=== PATIENT | male | born 1990 | race Caucasian/White ===

== ENCOUNTER 2024-05-31 09:13 | Observation (INO) | payer OTHER ==
[2024-05-31 10:09] LABS: Bacteria/HPF None Seen HPF (None Seen); Bilirubin Negative (Negative); Blood, Urine Negative (Negative); CAUTI Indications for Culture Pelvic or flank pain; Clarity Clear (Clear); Glucose, Urine (Dipstick) Normal (Negative); Ketone, Urine Negative (Negative); Leukocyte Negative Leu/uL (Negative); Nitrite Negative (Negative); Protein, Urine (Dipstick) Negative (Neg-Trace); RBC/HPF 0-3 HPF (0-3); Squamous Epithelial None Seen HPF (0-3); Urobilinogen Normal mg/dL (Less than 2); WBC/HPF None Seen HPF (0-3)
[2024-05-31 10:12] LABS: Urine Culture Reflex No No
[2024-05-31 10:45] LABS: #Basophils 0.05 10x3/uL (0.0-0.2); %Basophils 0.4 % (0.0-1.0); %Eosinophils 0.6 % (0.0-10.0); %Monocytes 6.7 % (0.0-10.0); %Neutrophils 72.9 % (42.0-75.0); Hematocrit 41.4 % (42.0-52.0); Hemoglobin 14.3 g/dL (14.0-18.0); Mean Corpuscular HGB CONC 34.5 g/dL (32.0-36.0); Mean Corpuscular Volume 81.2 fL (78.0-98.0); Mean Platelet Volume 9.7 fL (7.4-10.4); Platelet Count 282 10x3/uL (130-400)
[2024-05-31 11:03] LABS: ALT (SGPT) 24 U/L (8-55); AST (SGOT) 21 U/L (5-34); Albumin 4.3 g/dL (3.5-5.0); Anion Gap 14 mmol/L (10-20); BUN (Urea Nitrogen) 12 mg/dL (8.9-20.6); Bilirubin, Total 0.8 mg/dL (0.2-1.2); Calc. Creatinine Clearance 0 mL/min (70-130); Calcium 9.4 mg/dL (7.8-10.44); Carbon Dioxide 24 mmol/L (22-29); Chloride 105 mmol/L (98-107); Estimated GFR 94; Glucose 91 mg/dL (70-105); Potassium 4.2 mmol/L (3.5-5.1); Protein, Total 7.3 g/dL (6.0-8.3); Sodium 139 mmol/L (136-145)
[2024-05-31 11:21] LABS: Alkaline Phosphatase 86 U/L (40-110)
[2024-05-31] MEDS ORDERED: Ketorolac Tromethamine 30 MG (1 mL) VIAL ONE (11:27)
[2024-05-31] MEDS ORDERED: Ondansetron PF 4 MG/2 ML Vial ONE ×2 (11:27→18:13)
[2024-05-31] MEDS ORDERED: Calcium Carbonate 500 MG ChewTAB PO PRN (12:16)
[2024-05-31] MEDS ORDERED: Acetaminophen 325 MG TAB PO PRN (12:16)
[2024-05-31] MEDS ORDERED: Senokot S 8.6-50 MG TAB PO PRN (12:16)
[2024-05-31 13:14] VITALS: BMI 38.1
[2024-05-31] MEDS: Morphine 2 MG/ML VIAL SLOW IVP PRN (13:54)
[2024-05-31] MEDS: Lactated Ringer's 1,000 ML IV SCH (13:54)
[2024-05-31] MEDS ORDERED: PROPOFOL 20 ML ONE (15:47)
[2024-05-31] MEDS ORDERED: fentaNYL PF 100 MCG/2 ML SYRINGE ONE (15:47)
[2024-05-31] MEDS ORDERED: Lidocaine 1% PF 5 ML VIAL ONE (15:48)
[2024-05-31] MEDS ORDERED: LevoFLOXacin D5W 500 mg (100 mL) BAG ONE (18:02)
[2024-05-31] MEDS ORDERED: Dexamethasone 4 mg/ml Vial ONE (18:13)
[2024-05-31] MEDS ORDERED: Midazolam HCl 2 mg/2 ml Vial ONE (18:13)
[2024-05-31] MEDS ORDERED: SUGAMMADEX SODIUM 200 MG/2 ML VIAL ONE (18:34)
[2024-05-31] MEDS ORDERED: PHENYLEPHRINE-NS 100 MCG/ML 10 ML SYRINGE ONE (18:39)
[2024-05-31] MEDS ORDERED: ePHEDrine Sulfate 50 MG/10 ML VIAL ONE (18:44)
[2024-05-31] MEDS ORDERED: Ondansetron HCl/PF 4 MG/2 ML Vial IVP PRN (18:45)
[2024-05-31] MEDS ORDERED: HYDROmorphone 2 MG/ML VIAL SLOW IVP PRN (18:45)
[2024-05-31] MEDS ORDERED: Promethazine HCl 25 MG/ML VIAL IM PRN (18:45)
[2024-05-31] MEDS ORDERED: Iopamidol 15 ML ONE (19:31)
[2024-05-31] MEDS ORDERED: fentaNYL 50 mcg/mL 1 mL Vial ONE ×2 (19:51→20:02)
[2024-05-31] MEDS: Tamsulosin HCl 0.4 MG CAP PO SCH (20:48)
[2024-05-31] MEDS: Ondansetron PF 4 MG/2 ML Vial IVP PRN (23:27)
[2024-05-31] MEDS: Ketorolac Tromethamine 30 MG (1 mL) VIAL IVP PRN (23:27)
[2024-06-01 05:33] LABS: #Basophils Less than 0.03 10x3/uL (0.0-0.2); #Eosinophils Less than 0.03 10x3/uL (0.0-0.7); %Basophils 0.1 % (0.0-1.0); %Lymphocytes 10.4 % (21.0-51.0); %Neutrophils 82.2 % (42.0-75.0); Hematocrit 37.8 % (42.0-52.0); Hemoglobin 12.9 g/dL (14.0-18.0); Mean Corpuscular HGB CONC 34.1 g/dL (32.0-36.0); Mean Corpuscular Volume 82.2 fL (78.0-98.0); Mean Platelet Volume 9.9 fL (7.4-10.4); Platelet Count 261 10x3/uL (130-400); RBC Distribution Width 12.3 % (11.5-14.5)
[2024-06-01 06:15] LABS: Anion Gap 14 mmol/L (10-20); BUN (Urea Nitrogen) 12 mg/dL (8.9-20.6); Calc. Creatinine Clearance 145 mL/min (70-130); Calcium 8.8 mg/dL (7.8-10.44); Carbon Dioxide 21 mmol/L (22-29); Chloride 107 mmol/L (98-107); Estimated GFR 91; Glucose 114 mg/dL (70-105); Potassium 4.5 mmol/L (3.5-5.1); Sodium 137 mmol/L (136-145)
[2024-06-01 08:22] VITALS: BP 121/74; TEMP 98.3
[2024-06-01] MEDS: FLU (Fluarix Triv) TS24-25(6MOS UP)/PF 45 MCG/0.5 ML Syringe IM ONE (08:45)
[2024-06-05 14:15] LABS: CA Oxalate Dihydrate 20 % (.); CA Oxalate Monohydrate 80 % (.); Color Brown (.)
== END 2024-06-01 12:30 | disposition home or self-care (01) ==
LOC: SUATTDRO 09:13 → ERS 09:13 → T4-A 13:09
PROVIDERS: ADMIT Internal Medicine; ATTEND Internal Medicine
PROC: 0TC08ZZ Extirpation of Matter from Right Kidney, Via Natural or Artificial Opening Endoscopic (ICD-10-PCS; principal; 2024-06-01)
PROC: 0T768DZ Dilation of Right Ureter with Intraluminal Device, Via Natural or Artificial Opening Endoscopic (ICD-10-PCS; 2024-06-01)
DX: N20.0 Calculus of kidney (principal); N13.9 Obstructive and reflux uropathy, unspecified; G47.33 Obstructive sleep apnea (adult) (pediatric); Z96.653 Presence of artificial knee joint, bilateral; Z91.012 Allergy to eggs; Z79.1 Long term (current) use of non-steroidal anti-inflammatories (NSAID); Z79.899 Other long term (current) drug therapy
CPT/HCPCS: 36415; 74176; 74420; 80048; 80053; 81001; 82365; 83605; 85025; 88300; 96374; 96375; C1747; C1769; C2617; G0378; J1100; J1885; J1956; J2250; J2272; J2405; J2704; J3010; J7120; Q9967